=== PATIENT | male | born 1950 | race Caucasian/White ===

== ENCOUNTER 2017-01-16 09:33 | Day surgery (SDC) | payer MEDICARE, OTHER ==
--- NOTE | ~2017-01-16 | EGD ---
EGD REPORT [facility] [address] [id number] NAME: DIEGO GOOD JR : 48 STATUS : REG [facility]#: [id number] AGE: 66 ADM/REG DATE : 01/16/17 MR#: [id number] REPORT SERV DATE: 01/16/17 DICTATED BY: STEPHEN GARCIA DATE: 01/16/17 REPORT STATUS : Draft TRANSCRIBED BY: [employer] DATE: 01/16/17 [facility] Patient Name: Diego Good Date of : 1950 Attending MD: STEPHEN GARCIA MD Procedure Date No Time: 01/16/2017 Procedure: Upper GI endoscopy Indications: Abdominal pain in the right upper quadrant Referring MD: Shyla Yap MD Medicines: Sedation Required Anesthesia Staff Assistance Complications: No immediate complications. Estimated blood loss: Minimal. Procedure: Pre-Anesthesia Assessment: - ASA Grade Assessment: III - A patient with severe systemic disease. After obtaining informed consent, the endoscope was passed under direct vision. Throughout the procedure, the patient's blood pressure, pulse, and oxygen saturations were monitored continuously. The GIF [id number] was introduced through the mouth, and advanced to the third part of duodenum. The upper GI endoscopy was accomplished without difficulty. The patient tolerated the procedure well. Findings: LA Grade C (one or more mucosal breaks continuous between tops of 2 or more mucosal folds, less than 75% circumference) esophagitis with no bleeding was found in the lower third of the esophagus. Biopsies were taken with a cold forceps for histology. A small hiatus hernia was present. Scattered moderate inflammation characterized by erosions and erythema was found in the gastric antrum. Biopsies were taken with a cold forceps for histology. Patchy atrophic mucosa was found in the duodenal bulb. Biopsies were taken with a cold forceps for histology. Impression: - LA Grade C reflux esophagitis. Rule out Callejas's esophagus. Biopsied. - Hiatus hernia. - Gastritis. Biopsied. - Duodenal mucosal atrophy. Biopsied. Recommendation: - Patient has a contact number available for emergencies. The signs and symptoms of potential delayed complications were discussed with the patient. Return to EGD REPORT [address] [address] NAME: DIEGO GOOD : [birth year] STATUS : [facility] PAT#: [id number] AGE: 66 ADM/REG DATE : 01/16/17 MR#: [id number] REPORT SERV DATE: 01/16/17 DICTATED BY: STEPHEN GARCIA DATE: 01/16/17 REPORT STATUS : Draft TRANSCRIBED BY: [employer] DATE: 01/16/17 normal activities tomorrow. Written discharge instructions were provided to the patient. - Return to previous diet daily. - Discharge patient to home. - Use sucralfate tablets 1 gram PO BID for 4 weeks. - Await pathology results. - Perform an abdominal ultrasound at appointment to be scheduled. Procedure Code(s): --- Professional --- 92490, Esophagogastroduodenoscopy, flexible, transoral; with biopsy, single or multiple Diagnosis Code(s): --- Professional --- K21.0, Gastro-esophageal reflux disease with esophagitis K29.70, Gastritis, unspecified, without bleeding K31.9, Disease of stomach and duodenum, unspecified R10.11, Right upper quadrant pain CPT copyright 2013 [employer]. All rights reserved. The codes documented in this report are preliminary and upon development analyst review may be revised to meet current compliance requirements. STEPHEN GARCIA MD 01/16/2017 12:06 PM This report has been signed electronically. Number of Addenda: 0 Note Initiated On: 01/16/2017 11:46 AM Scope Withdrawal Time 0 hours 0 minutes 0 seconds [id number] [id number]
[~2017-01-16 09:33] MED LIST: APRES50 PO; B121000P IM; CARTIA XT180 MG/24 PO; CAT1 PO; CINNAMONPO PO; FISH OIL1200 MG PO; GARLIC PO; GLUCOTRO10 PO; HYGROTON 25 MG25 MG PO; IMDUR60 PO; JANUVIA100 MG PO; KLOR-CON M2020 MEQ PO; L40 PO; LEVEMFLXPN SC; LOFIBRA54 MG PO; PRIN5 PO; PROTONIX PO; ROCALTROL0.25 MCG PO; VITD; VITD PO
[2017-01-16 10:07] LABS: BUN (BLOOD UREA NITROGEN) 42 MG/DL (6-23); CALCIUM, SERUM 9.1 MG/DL (8.5-10.4); CHLORIDE, SERUM 110 MMOL/L (96-112); CO2 (CARBON DIOXIDE) 25 MMOL/L (24-34); CREATININE 3.72 MG/DL (0.70-1.30); GFR AFRICAN AMERICAN 18 ML/MIN (>=60); GFR NON AFRICAN AMERICAN 16 ML/MIN (>=60); GLUCOSE, SERUM 88 MG/DL (60-99); POTASSIUM, SERUM 4.4 MMOL/L (3.5-5.3); SODIUM, SERUM 142 MMOL/L (135-148)
== END 2017-01-16 23:59 | disposition home or self-care (01) ==
LOC: DMU 09:33
PROVIDERS: Anesthesiology; Internal Medicine Gastroenterology
PROC: 0DB38ZX Excision of Lower Esophagus, Via Natural or Artificial Opening Endoscopic, Diagnostic (ICD-10-PCS; 2017-01-16)
PROC: 0DB68ZX Excision of Stomach, Via Natural or Artificial Opening Endoscopic, Diagnostic (ICD-10-PCS; 2017-01-16)
PROC: 0DB98ZX Excision of Duodenum, Via Natural or Artificial Opening Endoscopic, Diagnostic (ICD-10-PCS; principal; 2017-01-16 12:00)
DX: K29.60 Other gastritis without bleeding (principal); K44.9 Diaphragmatic hernia without obstruction or gangrene; K21.0 Gastro-esophageal reflux disease with esophagitis; K31.9 Disease of stomach and duodenum, unspecified; G47.33 Obstructive sleep apnea (adult) (pediatric); I10 Essential (primary) hypertension; E78.00 Pure hypercholesterolemia, unspecified; I25.10 Atherosclerotic heart disease of native coronary artery without angina pectoris; I12.9 Hypertensive chronic kidney disease with stage 1 through stage 4 chronic kidney disease, or unspecified chronic kidney disease; E11.22 Type 2 diabetes mellitus with diabetic chronic kidney disease; N18.9 Chronic kidney disease, unspecified; E66.01 Morbid (severe) obesity due to excess calories; Z95.1 Presence of aortocoronary bypass graft; Z88.5 Allergy status to narcotic agent; Z79.899 Other long term (current) drug therapy; Z79.4 Long term (current) use of insulin
CPT/HCPCS: 80048; 88305